=== PATIENT | female | born 1940 | race Caucasian/White ===

== ENCOUNTER 2018-04-10 09:27 | Observation (INO) ==
--- NOTE | 2018-04-10 09:46 | Emergency Department Note ---
Disposition Clinical Impression: TIA (transient ischemic attack) Qualifiers: Transient cerebral ischemia type: transient global amnesia Qualified Code(s): G45.4 - Transient global amnesia Disposition: Still a Patient General Adult HPI - General Chief complaint: ED Altered Mental Status Stated complaint: AMS Time Seen by Provider: 04/10/18 09:30 Nursing Notes Reviewed: Yes Vital Signs Reviewed: Yes - History of Present Illness HPI Narrative: Patient was well last night however this morning woke up with repetitive questioning. She is unaware of why their boxes in her house and she is the one in place and there. She was at a family reunion recently and this elicited of a lot of emotions. The is concerned for possible emotional breakdown. Patient has no complaints. - Related Data Home Medications Medication Instructions Recorded Confirmed Aspirin 81 mg PO DAILY 03/15/17 04/10/18 Carvedilol [Coreg] 12.5 mg PO 1-2XD 03/15/17 04/10/18 Lisinopril [Zestril] 40 mg PO DAILY 03/15/17 04/10/18 clonazePAM [Klonopin] 0.5 mg PO BID PRN 03/15/17 04/10/18 Allergies Allergy/AdvReac Type Severity Reaction Status Date / Time azithromycin [From Zithromax] Allergy Gastrointestinal Verified 04/10/18 10:00 Upset cephalexin [From Keflex] Allergy Hives Verified 04/10/18 10:00 Cephalosporins Allergy Anxiety Verified 04/10/18 10:00 ciprofloxacin [From Cipro] Allergy Hives Verified 04/10/18 10:00 codeine Allergy Anxiety Verified 04/10/18 10:00 diltiazem [From Cardizem] Allergy Hallucinati Verified 04/10/18 10:00 ng diphenhydramine Allergy Hallucinati Verified 04/10/18 10:00 [From Benadryl] ng Erythromycin Base Allergy Hives Verified 04/10/18 10:00 hydroxyzine [From Atarax] Allergy Gastrointestinal Verified 04/10/18 10:00 Upset Penicillins Allergy Hives Verified 04/10/18 10:00 Sulfa (Sulfonamide Allergy Hives Verified 04/10/18 10:00 Antibiotics) sulfamethoxazole Allergy Flushing Verified 04/10/18 10:00 [From Septra] Tetracyclines Allergy Hives Verified 04/10/18 10:00 trimethoprim [From Junra] Allergy Flushing Verified 04/10/18 10:00 All systems ED: reviewed and negative except as stated. Constitutional: Denies: fever, chills ENT ED: Denies: congestion Cardiovascular: Denies: chest pain, syncope Respiratory: Denies: cough, dyspnea Gastrointestinal: Denies: abdominal pain, nausea, vomiting, diarrhea Genitourinary: Denies: urgency, dysuria, frequency Musculoskeletal: Denies: back pain, neck pain Integumentary: Denies: rash Neurological: Denies: headache, weakness Past Medical History - Past Medical History Attestation: Yes The following information was validated with the patient. 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 - Social History Smoking Status: Never smoker Smokeless Tobacco Status: No Alcohol use: Reports: none Drug use: Reports: none Physical Exam - General Limitations: other (Repetitive questioning) General appearance: alert, in no apparent distress - Head Head exam: atraumatic, normocephalic, normal inspection - Eye Eye exam: Present: normal appearance, PERRL, EOMI - ENT ENT exam: normal exam, normal oropharynx, mucous membranes moist - Neck Neck exam: Present: normal inspection, full ROM, trachea midline - Chest Chest inspection: Present: normal inspection, symmetric chest wall rise - Respiratory Respiratory exam: Present: normal lung sounds bilaterally. Absent: respiratory distress, accessory muscle use - Cardiovascular Cardiovascular exam: Present: regular rate, normal rhythm, normal heart sounds - Abdominal Exam Abdominal exam: Present: soft, Non-Tender. Absent: tenderness, distention, guarding, rebound, rigidity - Extremities Exam Extremities exam: Present: normal inspection, full ROM. Absent: tenderness, pedal edema - Back Exam Back exam: Present: normal inspection, full ROM. Absent: tenderness - Neurological Exam Neurological exam: Present: alert, CN II-XII intact, normal gait, other (Is aware of her name unaware of month or year.). Absent: motor sensory deficit - Psychiatric Psychiatric exam: Present: normal affect, normal mood - Skin Skin exam: Present: warm, dry, intact, normal color Course Course Narrative: Female patient presenting to the emergency department with her . Has been states that the patient was well yesterday. They did have a reunion that elicited since strong emotions from the patient. He states that she is under gone a large amount of stress from her children at this time. He states that when she woke up this morning she was confused. He no weakness however she keeps asking the same questions over and over. She was questioning his car was in the driveway and it was there is. On exam she has no lateralizing deficits appears well in no distress. She is unable to tell me the month or the year. She does know her name. She knows some of her children's name but is unaware of their age. She had to be prompted to discuss her grandchildren and their names. Pupils are equal and reactive. She has an NIH of 0. Lung sounds are clear heart tones are normal. Patient does have a history of atrial fibrillation with an ablation. She takes a baby aspirin a day but no blood thinner. The states that she is supposed to be on eliquis does not want to take it because she has several allergies. - Reevaluation(s) Reevaluation #1: Patient CT head showed some mild atherosclerotic disease. No signs of bleeding. No evidence of old infarct. We will get a CTA of patient's head and neck at this time. She does still have some amnesia. Time: 10:23 - Consultations Consultation #1: I spoke with Dr. Segura. He agrees on admitting patient here to the hospital to the hospital service and he will consult. Vital Signs Temperature 98.6 F 04/10/18 09:29 Pulse Rate 66 04/10/18 09:29 Respiratory Rate 18 04/10/18 09:29 Blood Pressure 221/108 04/10/18 09:29 O2 Sat by Pulse Oximetry 98 04/10/18 09:29 Temperature 97.7 F 04/11/18 07:40 Pulse Rate 59 04/11/18 07:40 Respiratory Rate 17 04/11/18 07:40 Blood Pressure 156/82 04/11/18 07:40 O2 Sat by Pulse Oximetry 96 04/11/18 07:40 Oxygen Delivery Oxygen Delivery Room Air Medical Decision Making - Medical Records Medical records reviewed: Yes I reviewed the patient's medical records. - Lab Data Lab results reviewed: Yes I reviewed the patient's lab results. Result diagrams: 04/11/18 04:18 04/11/18 04:18 Lab Results 06/04/10/18 04/10/18 Range/Units 09:34 09:35 09:35 WBC 9.4 (4.3-11.1) K/mcL RBC 4.44 (3.82-4.97) M/mcL Hgb 14.4 (11.5-15.4) g/dL Hct 40.6 (35.3-44.9) % MCV 91.4 (83.0-100.0) fL MCH 32.4 (28.0-33.3) pg MCHC 35.5 (31.6-35.5) g/dL RDW 13.2 (11.5-14.5) % Plt Count 219 (140-400) K/mcL MPV 9.9 (9.4-12.4) fL Immature Gran % 1.0 (0-4) % Seg Neutrophils % 68.8 % Lymphocytes % 22.7 % Monocytes % 7.0 % Eosinophils % 0.1 % Basophils % 0.4 % Neutrophils # 6.5 (1.6-8.9) K/mcL Lymphocytes # 2.1 (0.6-4.6) K/mcL Monocytes # 0.7 (0.0-1.3) K/mcL Eosinophils # 0.0 (0.0-0.6) K/mcL Basophils # 0.0 (0.0-0.2) K/mcL PT 11.3 (9.4-12.1) Seconds INR 1.1 APTT 28.8 (26.0-36.0) Seconds Sodium (136-145) mEq/L Potassium (3.5-5.1) mEq/L Chloride (98-107) mEq/L Carbon Dioxide (23-29) mEq/L BUN (8-23) mg/dL Creatinine (0.60-1.20) mg/dL Est GFR ( Amer) (> 60) Est GFR (Non-Af Amer) (> 60) BUN/Creatinine Ratio (6-26) Glucose (70-105) mg/dL POC Glucose 128 H (70-99) mg/dL Calculated Osmolality (280-300) Calcium (8.6-10.3) mg/dL Troponin I (< 0.04) ng/mL Urine Color (Yellow) Urine Clarity (Clear) Urine pH (5.0-8.0) pH Units Ur Specific [place] (1.010-1.025) Urine Protein (Neg-Trace) mg/dL Urine Glucose (UA) (Normal) mg/dL Urine Ketones (Negative) mg/dL Urine Blood (Negative) Urine Nitrite (Negative) Urine Bilirubin (Negative) Urine Urobilinogen (Normal) mg/dL Ur Leukocyte Esterase (Negative) Urine Microscopic RBC (0-3) per hpf Urine Microscopic WBC (0-3) per hpf Ur Squamous Epith Cells (None-Few) per lpf Urine Bacteria (None-Few) per hpf Hyaline Casts (None-Few) per lpf Ur Culture Indicated? (NO) 04/10/18 04/10/18 Range/Units 09:35 10:10 WBC (4.3-11.1) K/mcL RBC (3.82-4.97) M/mcL Hgb (11.5-15.4) g/dL Hct (35.3-44.9) % MCV (83.0-100.0) fL MCH (28.0-33.3) pg MCHC (31.6-35.5) g/dL RDW (11.5-14.5) % Plt Count (140-400) K/mcL MPV (9.4-12.4) fL Immature Gran % (0-4) % Seg Neutrophils % % Lymphocytes % % Monocytes % % Eosinophils % % Basophils % % Neutrophils # (1.6-8.9) K/mcL Lymphocytes # (0.6-4.6) K/mcL Monocytes # (0.0-1.3) K/mcL Eosinophils # (0.0-0.6) K/mcL Basophils # (0.0-0.2) K/mcL PT (9.4-12.1) Seconds INR APTT (26.0-36.0) Seconds Sodium 139 (136-145) mEq/L Potassium 4.1 (3.5-5.1) mEq/L Chloride 104 (98-107) mEq/L Carbon Dioxide 25 (23-29) mEq/L BUN 20 (8-23) mg/dL Creatinine 0.70 (0.60-1.20) mg/dL Est GFR ( Amer) > 60 (> 60) Est GFR (Non-Af Amer) > 60 (> 60) BUN/Creatinine Ratio 29 H (6-26) Glucose 132 H (70-105) mg/dL POC Glucose (70-99) mg/dL Calculated Osmolality 292 (280-300) Calcium 10.2 (8.6-10.3) mg/dL Troponin I < 0.03 (< 0.04) ng/mL Urine Color Yellow (Yellow) Urine Clarity Clear (Clear) Urine pH 6.5 (5.0-8.0) pH Units Ur Specific [place] 1.009 L (1.010-1.025) Urine Protein Negative (Neg-Trace) mg/dL Urine Glucose (UA) Normal (Normal) mg/dL Urine Ketones Negative (Negative) mg/dL Urine Blood Trace H (Negative) Urine Nitrite Negative (Negative) Urine Bilirubin Negative (Negative) Urine Urobilinogen Normal (Normal) mg/dL Ur Leukocyte Esterase Trace H (Negative) Urine Microscopic RBC 0-3 (0-3) per hpf Urine Microscopic WBC 0-3 (0-3) per hpf Ur Squamous Epith Cells Many H (None-Few) per lpf Urine Bacteria None Seen (None-Few) per hpf Hyaline Casts None Seen (None-Few) per lpf Ur Culture Indicated? NO. A (NO) - Radiology Data Radiology results reviewed: Yes I reviewed the patient's radiology results. Head CT 04/10/18 09:44 IMPRESSION: 1. No acute intracranial abnormality. 2. Atherosclerosis of the intracranial vasculature. D/ / Aime Partida MD / Aime Partida MD Interpreting Provider: Aime Patrida MD - EKG Data EKG #1 EKG attestation: Yes I reviewed and interpreted this EKG. EKG results narrative: Normal sinus rhythm at a rate of 69. NE interval is 147. Castration is 113. QT is 382. QTC is 400. No signs of acute ischemia. Patient does have left axis deviation that was on previous EKG dated 10/06/2018. No significant changes from this previous EKG. NIH Stroke Scale - Level of Consciousness LOC: Alert - LOC Questions LOC Questions: Answers one correctly - LOC Commands LOC Commands: Performs both correctly - Best Gaze Best Gaze: Normal - Visual Visual: No visual loss - Facial Palsy Facial Palsy: Normal - Motor Arms Motor Arm-Left: No drift for 10 seconds Motor Arm-Right: No drift for 10 seconds - Motor Legs Motor Leg-Left: No drift for 5 seconds Motor Leg-Right: No drift for 5 seconds - Limb Ataxia Limb Ataxia: Normal, No Ataxia - Sensory Sensory: Normal - Best Language Best Language: No aphasia - Dysarthria Dysarthria: Normal - Extinction and Inattention Extinction and Inattention: Normal - NIHSS Total Score NIHSS Total Score: 1
--- NOTE | 2018-04-10 09:51 | Emergency Department Note ---
Disposition Clinical Impression: TIA (transient ischemic attack) Qualifiers: Transient cerebral ischemia type: transient global amnesia Qualified Code(s): G45.4 - Transient global amnesia Disposition: Still a Patient Referrals: Mike Champagne MD [Primary Care Provider] - Forms: ED Satisfaction Letter General Adult HPI - General Chief complaint: ED Altered Mental Status Stated complaint: AMS Time Seen by Provider: 04/10/18 09:30 - Related Data Home Medications Medication Instructions Recorded Confirmed Aspirin 81 mg PO DAILY 03/15/17 03/15/17 Betamethasone Dipropionate 0.05 gm TP DAILY 03/15/17 03/15/17 Carvedilol [Coreg] 12.5 mg PO 1-2XD 03/15/17 03/15/17 Clobetasol Propionate 0.05% 1 appl TP 1-2XD 03/15/17 03/15/17 [Temovate] Lisinopril [Zestril] 40 mg PO DAILY 03/15/17 03/15/17 Loratadine [Claritin] 10 mg PO DAILY 03/15/17 03/15/17 Mupirocin Calcium [Mupirocin] 2 gm TP 1-3XD 03/15/17 03/15/17 Pantoprazole Sodium [Protonix] 40 mg PO DAILY 03/15/17 03/15/17 clonazePAM [Klonopin] 0.5 mg PO BID PRN 03/15/17 03/15/17 Allergies Allergy/AdvReac Type Severity Reaction Status Date / Time azithromycin [From Zithromax] Allergy Gastrointestinal Verified 03/15/17 20:28 Upset cephalexin [From Keflex] Allergy Hives Verified 03/15/17 20:28 Cephalosporins Allergy Anxiety Verified 03/15/17 20:28 ciprofloxacin [From Cipro] Allergy Hives Verified 03/15/17 20:28 codeine Allergy Anxiety Verified 03/15/17 20:28 diltiazem [From Cardizem] Allergy Hallucinati Verified 03/15/17 20:28 ng diphenhydramine Allergy Hallucinati Verified 03/15/17 20:28 [From Benadryl] ng Erythromycin Base Allergy Hives Verified 03/15/17 20:28 hydroxyzine [From Atarax] Allergy Gastrointestinal Verified 03/15/17 20:28 Upset Penicillins Allergy Hives Verified 03/15/17 20:28 Sulfa (Sulfonamide Allergy Hives Verified 03/15/17 20:28 Antibiotics) sulfamethoxazole Allergy Flushing Verified 03/15/17 20:28 [From Septra] Tetracyclines Allergy Hives Verified 03/15/17 20:28 trimethoprim [From Septra] Allergy Flushing Verified 03/15/17 20:28 Past Medical History - Past Medical History Medical history: Reports: atrial fibrillation, hypertension Psychiatric history: Reports: no psych history [employer]OR [employer]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 I agree with the documented findings, disposition and treatment plan as described except to the extent set forth below. Patient seen with emergency medicine resident Dr. Charley Villa, Please see a copy of his note for details of the H&P, ED evaluation, management and disposition. I have independently evaluated the patient and confirmed appropriate portions of the history and physical exam. Briefly: 78-year-old female ambulatory with for acute confusional episode. Patient woke up this morning with symptoms. History of ablation but is not on anticoagulants. Patient is awake and alert of her relates the confusion GCS is 15 her NIH score is 0. Patient will undergo noncontrast head CT screening labs EKG. Admission anticipated. Disposition pending. Time: 09:49 Medical Decision Making - Lab Data Lab Results 04/10/18 Range/Units 09:34 POC Glucose 128 H (70-99) mg/dL
[2018-04-10 09:58] LABS: Basophils % 0.4 %; Eosinophils % 0.1 %; Hematocrit 40.6 % (35.3-44.9); Hemoglobin 14.4 g/dL (11.5-15.4); Lymphocytes # 2.1 K/mcL (0.6-4.6); Lymphocytes % 22.7 %; Mean Corpuscular HGB Conc 35.5 g/dL (31.6-35.5); Mean Corpuscular Hemoglobin 32.4 pg (28.0-33.3); Mean Corpuscular Volume 91.4 fL (83.0-100.0); Mean Platelet Volume 9.9 fL (9.4-12.4); Monocytes # 0.7 K/mcL (0.0-1.3); Neutrophils # 6.5 K/mcL (1.6-8.9); Platelet Count 219 K/mcL (140-400); Red Blood Count 4.44 M/mcL (3.82-4.97); Red Cell Distribution Width 13.2 % (11.5-14.5); Segmented Neutrophils % 68.8 %
[2018-04-10 10:07] LABS: INR 1.1; Prothrombin Time 11.3 Seconds (9.4-12.1)
[2018-04-10 10:10] LABS: Activated Partial Thrombo Time 28.8 Seconds (26.0-36.0)
[2018-04-10 10:16] LABS: BUN/Creatinine Ratio 29 (6-26); Blood Urea Nitrogen 20 mg/dL (8-23); Calcium 10.2 mg/dL (8.6-10.3); Carbon Dioxide 25 mEq/L (23-29); Chloride 104 mEq/L (98-107); Glucose 132 mg/dL (70-105); Osmolality,Calculated 292 (280-300); Potassium 4.1 mEq/L (3.5-5.1); Sodium 139 mEq/L (136-145); eGFR For African Americans > 60 (> 60); eGFR For Non-African Americans > 60 (> 60)
[2018-04-10 10:17] LABS: Troponin I < 0.03 ng/mL (< 0.04)
[2018-04-10] MEDS ORDERED: Isovue-370 500 ML INFUS..BTL IV ONE (10:22)
[2018-04-10 10:28] LABS: Bilirubin,Urine Negative (Negative); Blood,Urine Trace (Negative); Clarity,Urine Clear (Clear); Color,Urine Yellow (Yellow); Glucose,Urine (UA) Normal (Normal); Ketones,Urine Negative (Negative); Leukocyte Esterase,Urine Trace (Negative); Nitrite,Urine Negative (Negative); PH,Urine 6.5 pH Units (5.0-8.0); Protein,Urine Negative (Neg-Trace); Specific Gravity,Urine 1.009 (1.010-1.025); Urobilinogen,Urine Normal (Normal)
[2018-04-10 10:30] LABS: Bacteria,Urine None Seen per hpf (None-Few); Hyaline Casts,Urine None Seen per lpf (None-Few); RBC,Urine 0-3 per hpf (0-3); Squamous Epithelial Cell,Urine Many per lpf (None-Few); WBC,Urine 0-3 per hpf (0-3)
[2018-04-10] MEDS: Lisinopril 20 MG TABLET PO SCH ×2 (12:22→18:19)
[2018-04-10] MEDS ORDERED: Naloxone 0.4 MG/ML INJ IVP PRN (14:12)
--- NOTE | 2018-04-10 15:21 | Internal Med History&Physical ---
<MeenatorriemilioWade cervantes - Last Filed: 04/10/18 18:43> Date of Encounter: 04/10/18 Time of Encounter: 13:00 Internal Medicine - H&P: HPI Chief complaint: AMS/Confusion Admitted From: Emergency Dept Plans for Post Hospital Care: Home History of present illness: Ms. Villavicencio is a 78 year old female w/PMH of atrial fibrillation and HTN presents from the ED w/CC of AMS. confusion, and short-term memory loss sx that began this morning. Pts. states that she was fine yesterday but has been under severe family stress, including a family renunion yesterday where pt. was emotionally stressed by her children. No focal weakness on waking, only confusion w/short-term memory loss and asking same question over and over. Does not know where she is. Recognizes her and her name and birthdate. Forgets conversation <60 minutes after having it. No familial hx of CVA/TIA. Pts. reports she takes 81 mg aspirin daily. Pt. has hx of atrial fibrillation. Pt. was to be started on Eliquis but has not consented. Pts. and pt. deny any recent illness, fever, chills, nausea, vomiting, reported headache, chest pain, shortness of breath, abdominal pain, diarrhea, constipation, unusual bleeding, dizziness, lightheadedness, numbness, tingling, pre-syncope, or syncope. Past Med Surg Social Fam HX - Past Medical History Source: patient, old records reviewed, obtained from family Medical history: atrial fibrillation, hypertension Additional medical history: eczemia Psychiatric history: no psych history - Past Surgical History Surgical History: appendectomy Additional surgical history: ABLASION(HEART) - Social History Smoking Status: Never smoker Smokeless Tobacco Status: No Alcohol use: none Drug use: none Current living situation: Home, With Family Activity Level: Independent ambulation Recent Out of Country Travel Within the Last 8 Weeks: No Exposure or Possible Exposure to Illness During Travel: No - Family History Mother Race: Family Member Ethnicity: Non- Living Status: Age at : 79 Cause of : Emphysema Hx Family Cardiac Disorders: Yes (Rheumatic) Hx Family Respiratory Disorders: Yes (Emphysema) Hx Family Genitourinary Disorders: Yes (Bright's disease) Father Race: Family Member Ethnicity: Non- Living Status: Age at : 55 Cause of : Lung cancer Hx Family Cancer: Yes (Lung) Hx Family Psychosocial Disorders: Yes (Alcoholic) Internal Medicine - H&P: Meds Aspirin 81 mg PO DAILY 03/15/17 [History] Carvedilol [Coreg] 12.5 mg PO 1-2XD 03/15/17 [History] Lisinopril [Zestril] 40 mg PO DAILY 03/15/17 [History] clonazePAM [Klonopin] 0.5 mg PO BID PRN 03/15/17 [History] 3 Allergy/AdvReac Type Severity Reaction Status Date / Time azithromycin [From Zithromax] Allergy Gastrointestinal Verified 04/10/18 10:00 Upset cephalexin [From Keflex] Allergy Hives Verified 04/10/18 10:00 Cephalosporins Allergy Anxiety Verified 04/10/18 10:00 ciprofloxacin [From Cipro] Allergy Hives Verified 04/10/18 10:00 codeine Allergy Anxiety Verified 04/10/18 10:00 diltiazem [From Cardizem] Allergy Hallucinati Verified 04/10/18 10:00 ng diphenhydramine Allergy Hallucinati Verified 04/10/18 10:00 [From Benadryl] ng Erythromycin Base Allergy Hives Verified 04/10/18 10:00 hydroxyzine [From Atarax] Allergy Gastrointestinal Verified 04/10/18 10:00 Upset Penicillins Allergy Hives Verified 04/10/18 10:00 Sulfa (Sulfonamide Allergy Hives Verified 04/10/18 10:00 Antibiotics) sulfamethoxazole Allergy Flushing Verified 04/10/18 10:00 [From Septra] Tetracyclines Allergy Hives Verified 04/10/18 10:00 trimethoprim [From Septra] Allergy Flushing Verified 04/10/18 10:00 All Systems PM: A 10-system review of systems was performed and is negative for pertinent findings except as documented above in the HPI. - Constitutional Constitutional: no chills, no fever(s), no night sweats - EENT Eyes: no change in vision, no discharge, no pain, no photophobia Ears: no ear discharge, no ear pain, no tinnitus Nose, mouth and throat: no dysphagia, no nasal discharge, no neck pain, no sore throat - Breasts Breasts: as per HPI - Cardiovascular Cardiovascular ROS IM: no chest pain, no diaphoresis, no dyspnea, no lightheadedness, no palpitations, no syncope - Respiratory Respiratory: no cough, no dyspnea, no wheezing, no excessive phlegm production - Gastrointestinal Gastrointestinal: no abdominal pain, no diarrhea, no hematemesis, no hematochezia, no melena, no nausea, no vomiting - Genitourinary Genitourinary: no change in urinary stream, no dysuria, no flank pain, no hematuria Menstruation: as per HPI - Musculoskeletal Musculoskeletal ROS IM: no numbness, no tingling - Integumentary Integumentary IM: no rash, no unusual bruising - Neurological Neurological ROS: as per HPI, confusion, memory loss, no convulsions, no focal weakness, no numbness, no tingling, no tremor(s) - Psychiatric Psychiatric: as per HPI - Endocrine Endocrine IM: as per HPI - Hematologic/Lymphatic Hematologic/Lymphatic: no easy bruising - Allergic/Immunologic Allergic/Immunologic: as per HPI - Constitutional Vitals: Temp Pulse Resp BP Pulse Ox 98.1 F 64 17 193/115 96 04/10/18 14:10 04/10/18 14:10 04/10/18 14:10 04/10/18 14:13 04/10/18 14:10 General appearance: Present: cooperative, A&O X 2, mild distress (Agitation from memory loss ), obese, answers questions appropriately - Head Head exam: Present: atraumatic, normocephalic - Eye Eye exam: Present: PERRL, conjuntiva pink, sclera anicteric Pupils: Present: PERRL - ENT ENT exam: Present: normal exam - Neck Neck exam general surgery: Present: supple, trachea midline. Absent: lymphadenopathy - Respiratory Respiratory exam: Present: CTAB. Absent: accessory muscle use, rales, rhonchi, wheezes - Cardiovascular Cardiovascular exam: Present: RRR, +S1, +S2. Absent: diastolic murmur, gallop, rubs, systolic murmur - GI/Abdominal GI/Abdominal exam: Present: normal bowel sounds, soft, no peritoneal signs. Absent: distended, tenderness - Rectal Rectal exam: Present: deferred - Additional comments: exam deferred. - Extremities Exam Extremities exam: Present: warm, radial pulses palpable and symmetrical. Absent : calf tenderness, cyanotic, pedal edema - Back Exam Back exam: Present: normal inspection - Neurological Exam Neurological exam: Present: altered, CN II-XII intact, no focal deficits. Absent: pronater drift, facial droop, speech deficit - Psychiatric Psychiatric exam: Present: anxious - Skin Skin exam: Present: dry, intact Internal Med - H&P Results - Labs CBC & Chem 7: 04/10/18 09:35 04/10/18 09:35 - EKG Data EKG shows normal: sinus rhythm - EKG Data Prior EKG available for review: yes Interpretation IM: suggestive of ischemia EKG comments: 04/10/18 15:36 EKG dated 10/06/08 show sinus rhythm with PVCs, leftward axis. Cannot rule out septal infarct of indeterminate age. Left ventricular hypertrophy by voltage only. EKG dated 04/10/18 shows sinus rhythm with marked left axis deviation, left ventricular hypertrophy and ST-T change, and possible septal myocardial infarction of indeterminate age. - Diagnostic Studies CT scan - head Additional comments: Impressions Head CT 04/10/18 09:44 IMPRESSION: 1. No acute intracranial abnormality. 2. Atherosclerosis of the intracranial vasculature. D/ / Aime Partida MD / Aime Partida MD Interpreting Provider: Aime Partida MD Other Images Additional comments: Impressions Head CTA 04/10/18 10:22 IMPRESSION: 1. No flow limiting stenosis of the cervical carotid or vertebral arteries. 2. No flow limiting stenosis of the [place]. 3. A 1-2 mm outpouching is seen arising from the right supraclinoid ICA, which may represent an infundibulum versus a tiny aneurysm. D/ / Aime Partida MD / Aime Partida MD Interpreting Provider: Aime Partida MD Neck CTA 04/10/18 10:22 IMPRESSION: 1. No flow limiting stenosis of the cervical carotid or vertebral arteries. 2. No flow limiting stenosis of the [place]. 3. A 1-2 mm outpouching is seen arising from the right supraclinoid ICA, which may represent an infundibulum versus a tiny aneurysm. D/ / Aime Partida MD / Aime Partida MD Interpreting Provider: Aime Partida MD - Assessment and plan (1) Altered mental status Current Visit: Yes Status: Acute Assessment and plan: Acute altered mental status that began this morning. No prior hx. No hx of CVA/ TIA. Pts. states that pt. has been under severe family stress including family reunion yesterday. Psychogenic versus physiologic. CTA of the head today which shows no flow limiting stenosis of the cervical carotid or vertebral arteries. No flow-limiting stenosis of the [place]. A 1-2 millimeter outpouching is seen arising from the right supraclinoid ICA which may represent an infundibulum versus a tiny aneurysm. MRI of the head/brain ordered to r/o infarct/ischemia/aneurysmal bleed. MRI results show mild small vessel ischemic changes bilaterally. No acute abnormality otherwise. NIHSS scale w/timed VS and neurologic checks. Neurology consult ordered and discussed w/Dr. Segura w/ recommendation for permissive HTN and close monitoring until MRI resulted and I appreciate the consult and recommendations as always. Padding to bedside. Dysphagia screen and NPO until screen passed. Falls/safety and up with assist. Pt. discussed w/Dr. Leone who agrees w/plan of care. Pt. is high risk d/t rapid onset of sx today, abnormal CTA, short-term memory loss, hx of atrial fibrillation not on anticoagulation, and HTN. Observation. Qualifiers: Altered mental status type: disorientation Qualified Code(s): R41.0 - Disorientation, unspecified (2) Short-term memory loss Current Visit: Yes Status: Acute Assessment and plan: Acute short-term memory loss that began this morning. No prior hx. No hx of CVA/ TIA. Pts. states that pt. has been under severe family stress including family reunion yesterday. Psychogenic versus physiologic. CTA of the head today which shows no flow limiting stenosis of the cervical carotid or vertebral arteries. No flow-limiting stenosis of the [place]. A 1-2 millimeter outpouching is seen arising from the right supraclinoid ICA which may represent an infundibulum versus a tiny aneurysm. MRI of the head/brain ordered to r/o infarct/ischemia/aneurysmal bleed. NIHSS scale w/timed VS and neurologic checks. Neurology consult ordered and discussed w/Dr. Segura w/recommendation for permissive HTN and close monitoring and I appreciate the consult and recommendations as always. Padding to bedside. Dysphagia screen and NPO until screen passed. Falls/safety and up with assist. (3) Abnormal CT of the head Current Visit: Yes Status: Acute Assessment and plan: Acute abnormal CTA of the head today which shows no flow limiting stenosis of the cervical carotid or vertebral arteries. No flow-limiting stenosis of the [place]. A 1-2 millimeter outpouching is seen arising from the right supraclinoid ICA which may represent an infundibulum versus a tiny aneurysm. MRI of the head/brain ordered to r/o infarct/ischemia/aneurysmal bleed. Awaiting results. (4) Atrial fibrillation Current Visit: Yes Status: Chronic Assessment and plan: Hx of paroxysmal atrial fibrillation. Pts. states pt. had ablation that worked temporarily. States she takes 81 mg aspirin daily. reports that pt. was supposed to start Eliquis but she has not consented to do so. Qualifiers: Atrial fibrillation type: paroxysmal Qualified Code(s): I48.0 - Paroxysmal atrial fibrillation (5) HTN (hypertension) Current Visit: Yes Status: Chronic Assessment and plan: Hx of chronic HTN. Monitor pt. and VS. Permissive HTN per Dr. Segura until MRI of head/brain resulted. Qualifiers: Hypertension type: essential hypertension Qualified Code(s): I10 - Essential (primary) hypertension (6) DVT prophylaxis Current Visit: Yes Status: Acute Assessment and plan: Bilateral SCDs on LEs for DVT prophylaxis d/t CT w/suspicion for aneurysm and current neurologic sx. Awaiting results of MRI to r/o aneurysmal bleed. - Time Spent With Patient Total time spent is greater than 50% in coordination of care (as documented) at patient's floor/unit and/or counseling patient: Greater than 35 minutes <Shady Leone - Last Filed: 04/11/18 19:55> Date of Encounter: 04/11/18 Internal Medicine - H&P: HPI History of present illness: Ms. Villavicencio is a 78 year old female All Systems PM: A 10-system review of systems was performed and is negative for pertinent findings except as documented above in the HPI. - Constitutional Vitals: Temp Pulse Resp BP Pulse Ox 98.6 F 76 14 125/73 95 04/11/18 18:54 04/11/18 18:54 04/11/18 18:54 04/11/18 18:54 04/11/18 18:54 Internal Med - H&P Results - Labs CBC & Chem 7: 04/11/18 04:18 04/11/18 04:18 Labs: Short CBC 04/11/18 Range/Units 04:18 WBC 9.3 (4.3-11.1) K/mcL Hgb 13.4 (11.5-15.4) g/dL Hct 38.4 (35.3-44.9) % Plt Count 219 (140-400) K/mcL Neutrophils # 4.7 (1.6-8.9) K/mcL BMP 04/11/18 04:18 Sodium 138 Potassium 4.0 Chloride 104 Carbon Dioxide 27 BUN 17 Creatinine 0.74 Glucose 104 Calcium 9.6 Cardiac Enzymes 04/10/18 Range/Units 21:14 Troponin I < 0.03 (< 0.04) ng/mL Liver Function 04/11/18 Range/Units 04:18 Total Bilirubin 0.6 (0.3-1.0) mg/dL AST 13 (13-39) Units/L ALT 27 (7-52) Units/L Alkaline Phosphatase 46 (34-104) Units/L Albumin 4.2 (3.5-5.7) g/dL - Impressions ITS Impressions Brain MRI 04/10/18 14:00 IMPRESSION: Mild small vessel ischemic changes bilaterally No acute abnormality otherwise. D/ / Mateus Alvarez / Mateus Alvarez Interpreting Provider: Mateus Alvarez Echocardiogram 04/11/18 11:11 Impressions: LVEF 65%. Increased LV wall thickness - measurements not optimally obtained. Mild left ventricular diastolic dysfunction. Normal right ventricular structure and function. Mild tricuspid regurgitation. No pulmonary hypertension. There is a PFO by agitated saline contrast, Left Ventricular Wall Motion: Rest Echo Findings The mid anterior septal, mid inferior lateral, basal anterior septal and basal inferior lateral kwon were not visualized. All other wall segments showed normal motion. Findings: Study Quality * Technically adequate exam. ECG Findings * Normal sinus rhythm. Left Ventricle * LVEF 65%. * Increased LV wall thickness - measurements not optimally obtained. * Mild left ventricular diastolic dysfunction. Right Ventricle * Normal right ventricular structure and function. Left Atrium * Normal left atrial size. Right Atrium * Normal right atrial size. Aortic Valve * No aortic regurgitation. * Trileaflet aortic valve. * Mildly thickened aortic valve leaflets. * No aortic stenosis. Mitral Valve * No mitral regurgitation. * Normal mitral valve structure. * No mitral stenosis. Tricuspid Valve * Tricuspid valve not well visualized. * Mild tricuspid regurgitation. * Estimated RA pressure is 3 mmHg. * Estimated RVSP is 26 mmHg. * No pulmonary hypertension. Pulmonic Valve * Pulmonic valve is not well visualized. * No pulmonic stenosis. * No pulmonic regurgitation. Pulmonary Artery * Pulmonary artery not well visualized. Aorta * Normally sized aortic root. Pericardium * There is no pericardial effusion present. Interatrial Septum * There is a PFO by agitated saline contrast, IVC * The IVC is not dilated. - Attending Attestation Discussed with JAYLA and agree with assessment and plan as above Exam patient was non-acute distress and cardiovascular exam revealed regular rate and rhythm Patient here for CVA rule out - Assessment and plan (1) Altered mental status Current Visit: Yes Status: Acute Qualifiers: Altered mental status type: disorientation Qualified Code(s): R41.0 - Disorientation, unspecified (2) Short-term memory loss Current Visit: Yes Status: Acute (3) Abnormal CT of the head Current Visit: Yes Status: Acute (4) Atrial fibrillation Current Visit: Yes Status: Chronic Qualifiers: Atrial fibrillation type: paroxysmal Qualified Code(s): I48.0 - Paroxysmal atrial fibrillation (5) HTN (hypertension) Current Visit: Yes Status: Chronic Qualifiers: Hypertension type: essential hypertension Qualified Code(s): I10 - Essential (primary) hypertension (6) DVT prophylaxis Current Visit: Yes Status: Acute (7) PFO (patent foramen ovale) Current Visit: Yes Status: Acute - Time Spent With Patient Total time spent is greater than 50% in coordination of care (as documented) at patient's floor/unit and/or counseling patient:
[2018-04-10] MEDS: Thiamine (B-1) 100 MG TABLET PO SCH (15:27)
[2018-04-10 16:07] LABS: Thyroid Stimulating Hormone 1.575 mcIU/mL (0.340-5.600)
[2018-04-10 16:17] LABS: Folate 17.8 ng/mL (3.0-16.0)
[2018-04-10] MEDS ORDERED: clonazePAM 0.5 MG TABLET PO PRN (18:00)
[2018-04-10] MEDS: Aspirin 81 MG TAB.CHEW PO SCH (18:17)
[2018-04-11 05:00] LABS: Basophils # 0.1 K/mcL (0.0-0.2); Basophils % 0.6 %; Eosinophils # 0.1 K/mcL (0.0-0.6); Eosinophils % 1.5 %; Hematocrit 38.4 % (35.3-44.9); Hemoglobin 13.4 g/dL (11.5-15.4); Immature Granulocytes % 0.6 % (0-4); Lymphocytes # 3.5 K/mcL (0.6-4.6); Lymphocytes % 37.6 %; Mean Corpuscular HGB Conc 34.9 g/dL (31.6-35.5); Mean Corpuscular Hemoglobin 31.7 pg (28.0-33.3); Mean Corpuscular Volume 90.8 fL (83.0-100.0); Mean Platelet Volume 9.8 fL (9.4-12.4); Monocytes # 0.9 K/mcL (0.0-1.3); Monocytes % 9.1 %; Neutrophils # 4.7 K/mcL (1.6-8.9); Platelet Count 219 K/mcL (140-400); Red Blood Count 4.23 M/mcL (3.82-4.97); Red Cell Distribution Width 13.7 % (11.5-14.5); Segmented Neutrophils % 50.6 %
[2018-04-11 05:15] LABS: Alanine Aminotransferase 27 Units/L (7-52); Albumin 4.2 g/dL (3.5-5.7); Albumin/Globulin Ratio 1.7 (1.1-2.2); Alkaline Phosphatase 46 Units/L (34-104); Aspartate Amino Transferase 13 Units/L (13-39); BUN/Creatinine Ratio 23 (6-26); Bilirubin,Total 0.6 mg/dL (0.3-1.0); Blood Urea Nitrogen 17 mg/dL (8-23); Calcium 9.6 mg/dL (8.6-10.3); Carbon Dioxide 27 mEq/L (23-29); Chloride 104 mEq/L (98-107); Chol/HDL Ratio 4.7 (0-4.9); Cholesterol 202 mg/dL (< 200); Globulin 2.5 g/dL (2.4-3.5); Glucose 104 mg/dL (70-105); HDL Cholesterol 43 mg/dL (40-59); LDL Cholesterol,Calculated 115 mg/dL (0-99); Magnesium 2.2 mg/dL (1.6-2.6); Osmolality,Calculated 288 (280-300); Sodium 138 mEq/L (136-145); Total Protein 6.7 g/dL (6.4-8.9); Triglycerides 218 mg/dL (< 150); eGFR For African Americans > 60 (> 60); eGFR For Non-African Americans > 60 (> 60)
[2018-04-11] MEDS: Aspirin 81 MG TAB.CHEW PO SCH (07:57)
[2018-04-11] MEDS: Thiamine (B-1) 100 MG TABLET PO SCH (07:57)
[2018-04-11] MEDS: Lisinopril 20 MG TABLET PO SCH ×2 (07:58)
[2018-04-11 10:09] LABS: Amphetamine Screen,Urine Negative ng/mL (Cutoff=1000); Barbiturate Screen,Urine Negative ng/mL (Cutoff=200); Benzodiazepines Screen,Urine Negative ng/mL (Cutoff=200); Cannabinoid Screen,Urine Negative ng/mL (Cutoff = 50); Cocaine Screen,Urine Negative ng/mL (Cutoff= 300); Opiate Screen,Urine Negative ng/mL (Cutoff=300); Phencyclidine Screen,Urine Negative ng/mL (Cutoff=25)
--- NOTE | 2018-04-11 11:26 | Internal Med Progress Note ---
Date of Encounter: 04/11/18 Time of Encounter: 11:26 - Assessment and plan (1) Altered mental status Current Visit: Yes Status: Acute Assessment and plan: Present patient is alert appropriate following simple commands states that she does repeat herself often. No focal deficits noted cranial nerves II through XII are intact expresses the patient has been under severe family stress. CTA of head shows no flow-limiting stenosis or cervical carotid or vertebral arteries no flow-limiting stenosis of the [place] A1 to 2 mm outpouching is seen arising from the rightsupraclinoid ICA which may represent an infundibulum versus a tiny aneurysm. Brain MRI with no acute abnormality LV EF 65% increased LV wall thickness mild left ventricular diastolic dysfunction normal right ventricular structure and function mild tricuspid regurgitation no pulmonary hypertension there is a PFO. Qualifiers: Altered mental status type: disorientation Qualified Code(s): R41.0 - Disorientation, unspecified (2) Short-term memory loss Current Visit: Yes Status: Acute Assessment and plan: Acute short-term memory loss that began this morning. No prior hx. No hx of CVA/ TIA. Pts. states that pt. has been under severe family stress including family reunion yesterday. Psychogenic versus physiologic. CTA of the head today which shows no flow limiting stenosis of the cervical carotid or vertebral arteries. No flow-limiting stenosis of the [place]. A 1-2 millimeter outpouching is seen arising from the right supraclinoid ICA which may represent an infundibulum versus a tiny aneurysm. MRI of the head/brain acute abnormality mild small vessel ischemic changes bilaterally Neurology is consulted and appreciate recommendations (3) Abnormal CT of the head Current Visit: Yes Status: Acute Assessment and plan: Acute abnormal CTA of the head today which shows no flow limiting stenosis of the cervical carotid or vertebral arteries. No flow-limiting stenosis of the [place]. A 1-2 millimeter outpouching is seen arising from the right supraclinoid ICA which may represent an infundibulum versus a tiny aneurysm. MRI of the head/brain ordered with no acute. -We will have patient follow-up with neurology as outpatient to monitor (4) Atrial fibrillation Current Visit: Yes Status: Chronic Assessment and plan: Hx of paroxysmal atrial fibrillation. Appears to be sinus rhythm at this time Pts. states pt. had ablation that worked temporarily. States she takes 81 mg aspirin daily. Patient is supposed to take a Eliquis however she has declined at this time we will outpatient follow-up with cardiology as outpatient Qualifiers: Atrial fibrillation type: paroxysmal Qualified Code(s): I48.0 - Paroxysmal atrial fibrillation (5) HTN (hypertension) Current Visit: Yes Status: Chronic Assessment and plan: Hx of chronic HTN. Patient was hypertensive on presentation with systolic blood pressure around 200. Resumed home medications appears to be trending downward Qualifiers: Hypertension type: essential hypertension Qualified Code(s): I10 - Essential (primary) hypertension (6) PFO (patent foramen ovale) Current Visit: Yes Status: Acute Assessment and plan: 1 cardiac echo does show a PFO. Patient is on aspirin she is supposed to be on Eliquis however she is declined use at this time. I did advise patient the risk of stroke. Advised patient to follow-up with cardiology she does see [facility] in [place]. We will set up appointment prior to discharge for follow-up on PFO. Did discuss this with Dr. Segura who does recommend continuation of aspirin at this time (7) DVT prophylaxis Current Visit: Yes Status: Acute Assessment and plan: Bilateral SCDs - Time Spent With Patient Total time spent is greater than 50% in coordination of care (as documented) at patient's floor/unit and/or counseling patient: - Subjective Interval history: Seen and examined at bedside presently she is alert appropriate along simple commands. Neurologically appears to be intact denies any headaches or vision changes. Awaiting neurology's recommendations. - Constitutional Vitals: Temp Pulse Resp BP Pulse Ox 97.7 F 59 17 156/82 96 04/11/18 07:40 04/11/18 07:40 04/11/18 07:40 04/11/18 07:40 04/11/18 07:40 General appearance: Present: cooperative, A&O X 2, mild distress (Agitation from memory loss ), obese, answers questions appropriately - Head Head exam: Present: atraumatic, normocephalic - Eye Eye exam: Present: PERRL, conjuntiva pink, sclera anicteric Pupils: Present: PERRL - Neck Neck exam general surgery: Present: supple, trachea midline. Absent: lymphadenopathy - Respiratory Respiratory exam: Present: CTAB. Absent: accessory muscle use, rales, rhonchi, wheezes - Cardiovascular Cardiovascular exam: Present: RRR, +S1, +S2. Absent: diastolic murmur, gallop, rubs, systolic murmur - GI/Abdominal GI/Abdominal exam: Present: normal bowel sounds, soft, no peritoneal signs. Absent: distended, tenderness - Extremities Exam Extremities exam: Present: warm, radial pulses palpable and symmetrical. Absent : calf tenderness, cyanotic, pedal edema - Neurological Exam Neurological exam: Present: CN II-XII intact, oriented X3, no focal deficits. Absent: pronater drift, facial droop, speech deficit - Skin Skin exam: Present: dry, intact Internal Medicine: Result - Labs CBC & Chem 7: 04/11/18 04:18 04/11/18 04:18 Labs: Short CBC 04/11/18 Range/Units 04:18 WBC 9.3 (4.3-11.1) K/mcL Hgb 13.4 (11.5-15.4) g/dL Hct 38.4 (35.3-44.9) % Plt Count 219 (140-400) K/mcL Neutrophils # 4.7 (1.6-8.9) K/mcL BMP 04/11/18 04:18 Sodium 138 Potassium 4.0 Chloride 104 Carbon Dioxide 27 BUN 17 Creatinine 0.74 Glucose 104 Calcium 9.6 Cardiac Enzymes 04/10/18 04/10/18 Range/Units 15:12 21:14 Troponin I < 0.03 < 0.03 (< 0.04) ng/mL Liver Function 04/11/18 Range/Units 04:18 Total Bilirubin 0.6 (0.3-1.0) mg/dL AST 13 (13-39) Units/L ALT 27 (7-52) Units/L Alkaline Phosphatase 46 (34-104) Units/L Albumin 4.2 (3.5-5.7) g/dL - ABG Interpretation ABG results: PT/INR, D-dimer PT 11.3 Seconds (9.4-12.1) 04/10/18 09:35 - Impressions Impressions Brain MRI 04/10/18 14:00 IMPRESSION: Mild small vessel ischemic changes bilaterally No acute abnormality otherwise. D/ / Mateus Alvarez / Mateus Alvarez Interpreting Provider: Mateus Alvarez Consult Discharge Plan - Plan Referrals: Mike Champagne MD [Primary Care Provider] -
--- NOTE | 2018-04-11 16:32 | Neurology - Consult Note ---
Date of Encounter: 04/11/18 Time of Encounter: 16:27 Assessment and Plan (1) Altered mental status Current Visit: Yes Status: Acute At this time I am not able to give a definitive etiology to explain this phenomenon. However I believe an appropriate differential will consist of perhaps transient global amnesia, hypertensive encephalopathy, or perhaps even a psychogenic fugue state. However, she seems to be resolving rather quickly which I would think might go along more with hypertensive encephalopathy since she is improving as her blood pressure has normalized. At this point however since she is improving and I find no other focal or lateralized deficits, her MRI scan was negative for any acute process. She should be able to go home with her . I certainly recommend a return to the hospital in the event that she does not continue to improve over the next week or so or she develops headache visual changes or any other acute symptoms. She is supposed to be on anticoagulation however refuses to take it. I did inform her that anticoagulation is the treatment of choice for stroke prevention and those individuals that have atrial fibrillation. She did not however agreed to go on anticoagulation even knowing the potential risks. I will reevaluate her at your request. Qualifiers: Altered mental status type: disorientation Qualified Code(s): R41.0 - Disorientation, unspecified History of Present Illness HPI: The chart was reviewed, patient was seen and examined independently. Ms. Villavicencio is a 78 year old female who was seen for neurologic consultation at the request of the hospitalist secondary to transient memory difficulties. Apparently she has been under an excessive amount of stress lately. She has a son who is incarcerated that she is concerned about. Apparently a family reunion which was a day prior to admission she apparently had disagreements with other of her children. Then on Wednesday morning apparently she had acute difficulty with memory. She repeated herself and asks the same questions over. She could not answer simple questions such as her address. She denied any headache associated. She denied any changes in medications, denied any numbness tingling paresthesia or weakness of the face arms or legs. Apparently when she presented to [facility] her blood pressure was elevated at 200 systolic. Today it seems as though she is improving although not back to her normal baseline. MRI scan of the brain did not reveal evidence of acute infarct. Minimal chronic ischemic changes identified in the periventricular and subcortical white matter. Currently she is awake and alert and does not appear to be under any acute distress. Past Med Surg Social Fam HX - Past Medical History Medical history: atrial fibrillation, hypertension Additional medical history: eczemia Psychiatric history: no psych history - Past Surgical History Surgical History: appendectomy Additional surgical history: ABLASION(HEART) - Social History Smoking Status: Never smoker Smokeless Tobacco Status: No Alcohol use: none Drug use: none - Family History Mother Race: Family Member Ethnicity: Non- Living Status: Age at : 79 Cause of : Emphysema Hx Family Cardiac Disorders: Yes (Rheumatic) Hx Family Respiratory Disorders: Yes (Emphysema) Hx Family Genitourinary Disorders: Yes (Bright's disease) Hx Family Musculoskeletal Disorders: Yes Father Race: Family Member Ethnicity: Non- Living Status: Age at : 55 Cause of : Lung cancer Hx Family Cancer: Yes (Lung) Hx Family Psychosocial Disorders: Yes (Alcoholic) Medications and Allergies Aspirin 81 mg PO DAILY 03/15/17 [History] Carvedilol [Coreg] 12.5 mg PO 1-2XD 03/15/17 [History] Lisinopril [Zestril] 40 mg PO DAILY 03/15/17 [History] clonazePAM [Klonopin] 0.5 mg PO BID PRN 03/15/17 [History] 3 Allergy/AdvReac Type Severity Reaction Status Date / Time azithromycin [From Zithromax] Allergy Gastrointestinal Verified 04/10/18 10:00 Upset cephalexin [From Keflex] Allergy Hives Verified 04/10/18 10:00 Cephalosporins Allergy Anxiety Verified 04/10/18 10:00 ciprofloxacin [From Cipro] Allergy Hives Verified 04/10/18 10:00 codeine Allergy Anxiety Verified 04/10/18 10:00 diltiazem [From Cardizem] Allergy Hallucinati Verified 04/10/18 10:00 ng diphenhydramine Allergy Hallucinati Verified 04/10/18 10:00 [From Benadryl] ng Erythromycin Base Allergy Hives Verified 04/10/18 10:00 hydroxyzine [From Atarax] Allergy Gastrointestinal Verified 04/10/18 10:00 Upset Penicillins Allergy Hives Verified 04/10/18 10:00 Sulfa (Sulfonamide Allergy Hives Verified 04/10/18 10:00 Antibiotics) sulfamethoxazole Allergy Flushing Verified 04/10/18 10:00 [From ] Tetracyclines Allergy Hives Verified 04/10/18 10:00 trimethoprim [From ] Allergy Flushing Verified 04/10/18 10:00 All Systems: The remainder of the systems were reviewed and are negative Review of Systems: Balance of the systems review is negative. Physical Examination - Vital Signs Vital Signs: Initial Vital Signs Temp Pulse Resp BP Pulse Ox 98.6 F 66 18 221/108 98 04/10/18 09:29 04/10/18 09:29 04/10/18 09:29 04/10/18 09:29 04/10/18 09:29 - Neurologic Detailed motor examination: full strength in all major muscle groups Motor examination - right side: 5/5: deltoids, biceps, triceps, wrist flexion, wrist extension, commercial electrician, hip flexors, tibialis Anterior, quadriceps, toe extension (EHL), plantarflexion Motor examination - left side: 5/5: deltoids, biceps, triceps, wrist flexion, wrist extension, hip flexors, commercial electrician, quadriceps, tibialis Anterior, toe extension (EHL), plantarflexion Detailed sensory examination: intact Mental Status Examination: awake, alert, oriented to person, oriented to place, oriented to time, follows commands appropriately, no agnosia, no aphasia, no aproxia Cranial nerve examination: PERRL, EOMI, visual shukla intact, corneal reflexes brisk symmetrically, sensory to face intact, mastication intact, no facial asymmetry is present, no dysarthria, hearing is intact symmetrically, soft palate elevates bilaterally upon phonation, gag reflex intact, flexes SCM and trapezius muscles symmetrically with full power, tongue protrudes midline, no atrophy or facial fasiculations present Cerebellar examination: no dysmetria, performs finger to nose and heel to stone symmetrically without ataxia, no gait ataxia, no truncal ataxia, no difficulty with rapid alternating movements Results - Laboratory Findings CBC and BMP: 04/11/18 04:18 04/11/18 04:18 Abnormal lab findings: Abnormal lab results POC Glucose 128 mg/dL (70-99) H 04/10/18 09:34 Triglycerides 218 mg/dL (< 150) H 04/11/18 04:18 Cholesterol 202 mg/dL (< 200) H 06/25/18 04:18 LDL Cholesterol, Calc 115 mg/dL (0-99) H 04/11/18 04:18 VLDL Cholesterol, Calc 44 mg/dL (< 31) H 04/11/18 04:18 Folate 17.8 ng/mL (3.0-16.0) H 04/10/18 15:12 Ur Specific [place] 1.009 (1.010-1.025) L 04/10/18 10:10 Urine Blood Trace (Negative) H 04/10/18 10:10 Ur Leukocyte Esterase Trace (Negative) H 04/10/18 10:10 Ur Squamous Epith Cells Many per lpf (None-Few) H 04/10/18 10:10 Ur Culture Indicated? NO. (NO) A 04/10/18 10:10 Consult Discharge Plan - Plan Referrals: Mike Champagne MD [Primary Care Provider] -
[2018-04-11 22:47] LABS: Estimated Average Glucose 105 mg/dl; Hemoglobin A1C 5.3 %
[2018-04-12 07:09] LABS: Basophils # 0.1 K/mcL (0.0-0.2); Basophils % 0.7 %; Eosinophils # 0.2 K/mcL (0.0-0.6); Eosinophils % 2.6 %; Hematocrit 40.8 % (35.3-44.9); Hemoglobin 14.3 g/dL (11.5-15.4); Immature Granulocytes % 0.7 % (0-4); Lymphocytes # 2.8 K/mcL (0.6-4.6); Mean Corpuscular Hemoglobin 32.3 pg (28.0-33.3); Mean Corpuscular Volume 92.1 fL (83.0-100.0); Monocytes # 0.8 K/mcL (0.0-1.3); Monocytes % 9.3 %; Neutrophils # 4.8 K/mcL (1.6-8.9); Platelet Count 197 K/mcL (140-400); Red Blood Count 4.43 M/mcL (3.82-4.97); Red Cell Distribution Width 13.5 % (11.5-14.5); Segmented Neutrophils % 54.7 %
[2018-04-12 07:29] LABS: Alanine Aminotransferase 25 Units/L (7-52); Albumin 3.8 g/dL (3.5-5.7); Albumin/Globulin Ratio 1.7 (1.1-2.2); Alkaline Phosphatase 43 Units/L (34-104); Aspartate Amino Transferase 9 Units/L (13-39); BUN/Creatinine Ratio 28 (6-26); Bilirubin,Total 0.5 mg/dL (0.3-1.0); Blood Urea Nitrogen 21 mg/dL (8-23); Calcium 9.3 mg/dL (8.6-10.3); Carbon Dioxide 25 mEq/L (23-29); Chloride 106 mEq/L (98-107); Globulin 2.3 g/dL (2.4-3.5); Glucose 117 mg/dL (70-105); Osmolality,Calculated 290 (280-300); Potassium 4.1 mEq/L (3.5-5.1); Sodium 138 mEq/L (136-145); Total Protein 6.1 g/dL (6.4-8.9); eGFR For African Americans > 60 (> 60); eGFR For Non-African Americans > 60 (> 60)
[2018-04-12] MEDS: Thiamine (B-1) 100 MG TABLET PO SCH (08:08)
[2018-04-12] MEDS: Lisinopril 20 MG TABLET PO SCH (08:08)
[2018-04-12] MEDS: Aspirin 81 MG TAB.CHEW PO SCH (08:09)
[2018-04-12 11:42] VITALS: BP 113/70
--- NOTE | 2018-04-12 13:37 | Discharge Summary ---
- NOTES TO OUTPATIENT PROVIDER Notes to Outpatient Provider: Patient has a history of atrial fibrillation who was not on anticoagulation. She presented with transient global amnesia versus hypertensive encephalopathy. Her blood pressure has stabilized and she is now ready for discharge. Her echo did show a PFO the patient is agreeable to take an condition. 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 She is going to get a prescription and started anticoagluation tonight and follow up with cardiology as an outpatient. Orders not resulted at time of discharge: Pending orders 04/13/18 04:00 Complete Blood Count [HEME] AM 0400 Comprehensive Metabolic Panel AM 0400 Date of Encounter: 04/12/18 Time of Encounter: 13:35 - Discharge Diagnosis (1) Short-term memory loss Priority: Primary Status: Acute (2) Altered mental status Priority: Secondary Status: Acute Qualifiers: Altered mental status type: disorientation Qualified Code(s): R41.0 - Disorientation, unspecified (3) Abnormal CT of the head Priority: Secondary Status: Acute (4) Atrial fibrillation Priority: Secondary Status: Chronic Qualifiers: Atrial fibrillation type: paroxysmal Qualified Code(s): I48.0 - Paroxysmal atrial fibrillation (5) HTN (hypertension) Priority: Secondary Status: Chronic Qualifiers: Hypertension type: essential hypertension Qualified Code(s): I10 - Essential (primary) hypertension (6) DVT prophylaxis Priority: Secondary Status: Acute (7) PFO (patent foramen ovale) Priority: Secondary Status: Acute Hospital course: Ms. Villavicencio is a 78 year old female with PMH of Afib NOT on AC who presented with transient memory difficulty and altered mental status she has been under excessive amount of stress of late. She underwent a thorough evaluation in the hospital including an MRI which did not reveal any new infarcts. Her echocardiogram did show an evidence of PFO. This is either a case of transient global amnesia or hypertensive encephalopathy. At this point she is amenable to starting anti-coagulation. I will start her on Eliquis 5 mg twice a day and provided a prescription Discharge discussed with: patient, family - Time Spent with Patient Total time spent providing and/or coordinating discharge services: Greater than 30 minutes - Discharge Medications Prescriptions: Apixaban [Eliquis] 5 mg PO BID #60 tablet Home Medications: Carvedilol [Coreg] 12.5 mg PO 1-2XD 03/15/17 [History] Lisinopril [Zestril] 40 mg PO DAILY 03/15/17 [History] clonazePAM [Klonopin] 0.5 mg PO BID PRN 03/15/17 [History] Apixaban [Eliquis] 5 mg PO BID #60 tablet 04/12/18 [Rx] Thiamine (B-1) [Vitamin B-1] 100 mg PO DAILY tablet 04/12/18 [Rx] Allergies/Adverse Reactions: 3 Allergy/AdvReac Type Severity Reaction Status Date / Time azithromycin [From Zithromax] Allergy Gastrointestinal Verified 04/10/18 10:00 Upset cephalexin [From Keflex] Allergy Hives Verified 04/10/18 10:00 Cephalosporins Allergy Anxiety Verified 04/10/18 10:00 ciprofloxacin [From Cipro] Allergy Hives Verified 04/10/18 10:00 codeine Allergy Anxiety Verified 04/10/18 10:00 diltiazem [From Cardizem] Allergy Hallucinati Verified 04/10/18 10:00 ng diphenhydramine Allergy Hallucinati Verified 04/10/18 10:00 [From Benadryl] ng Erythromycin Base Allergy Hives Verified 04/10/18 10:00 hydroxyzine [From Atarax] Allergy Gastrointestinal Verified 04/10/18 10:00 Upset Penicillins Allergy Hives Verified 04/10/18 10:00 Sulfa (Sulfonamide Allergy Hives Verified 04/10/18 10:00 Antibiotics) sulfamethoxazole Allergy Flushing Verified 04/10/18 10:00 [From Septra] Tetracyclines Allergy Hives Verified 04/10/18 10:00 trimethoprim [From Septra] Allergy Flushing Verified 04/10/18 10:00 Date of admission: 04/10/18 13:10 Primary care physician: Mike Champagne MD Consults: 04/10/18 14:11 Consult to Consulting Business Developer [CONS] Routine Reason for SW Consult: Please assess patient for possible home needs for post -discharge planning. Pt.s. reports she is under severe stress at home. Possible counseling services needed. - Constitutional Vitals: Temp Pulse Resp BP Pulse Ox 96.5 F L 74 17 113/70 95 04/12/18 11:41 04/12/18 11:41 04/12/18 11:41 04/12/18 11:41 04/12/18 11:41 General appearance: Present: cooperative, A&O X 2, mild distress (Agitation from memory loss ), obese, answers questions appropriately Exam: GENERAL: Alert, no distress, cooperative EYES: PERRLA, EOMI EARS: External ears normal, canals clear OROPHARYNX: Lips, mucosa, and tongue normal. Teeth and gums normal. Oropharynx normal. NECK: No jugulovenous distention, No carotid bruits, Carotid pulse normal contour, Supple LUNGS: Lungs clear to auscultation, Good diaphragmatic excursion CARDIAC: s1s2 irregular no rubs, murmurs, or gallops ABDOMEN: Abdomen soft, non-tender, BS normal, No masses or organomegaly EXTREMITIES: Extremities normal, no deformities, edema, clubbing or skin discoloration. Good capillary refill., No ulcers NEURO: Gait normal. Reflexes normal and symmetric. Sensation grossly intact, Cranial nerves II-XII intact PULSES: 2+ radial, 2+ carotid Rest of the exam is non contributory - Patient Status Disposition: Home, Self-Care Condition: Good Functional capacity at discharge: independent ambulation Overall status at discharge: patient is back to baseline - Discharge Instructions Instructions: Atrial Fibrillation (DC) Follow Up With: Mike Champagne MD [Primary Care Provider] - - Diet and Activity Activity: resume usual activities as tolerated Diet: advance to your usual diet - VTE Documentation of Mechanical Device: Intermittent pneumatic compression device
--- NOTE | 2018-04-12 16:36 | Electrocardiograph Report ---
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
== END 2018-04-12 15:41 | disposition home or self-care (01) ==
LOC: EMEROO 09:27 → 3BNU 09:27
PROVIDERS: ADMIT Nurse Practitioner Family; ATTEND Nurse Practitioner Family